=== PATIENT | female | born 1975 | race Caucasian/White ===

== ENCOUNTER 2022-11-08 10:03 | Outpatient (CLI) | payer BC, SELFPAY | END 2022-11-08 10:04 | disposition home or self-care (01) | PROVIDERS: PCP Physician Assistant Medical; Visit Provider Physician Assistant Medical | DX: Z00.00 Encounter for general adult medical examination without abnormal findings (principal); R21 Rash and other nonspecific skin eruption; Z13.6 Encounter for screening for cardiovascular disorders; Z13.1 Encounter for screening for diabetes mellitus | CPT/HCPCS: 80048; 80061; 86039; 86140; 86431; 86812 ==

== ENCOUNTER 2023-09-08 11:52 | Outpatient (CLI) | payer BC, SELFPAY | END 2023-09-08 11:53 | disposition home or self-care (01) | PROVIDERS: PCP Physician Assistant Medical; Visit Provider Physician Assistant Medical | DX: R10.9 Unspecified abdominal pain (principal) | CPT/HCPCS: 80053; 83690 ==

== ENCOUNTER 2023-09-23 07:17 | Outpatient (CLI) | payer BC, SELFPAY ==
--- NOTE | 2023-09-23 07:15 | CRLHL7_ITS ---
For Patients: As a result of the Century Cures Act, medical imaging exams and procedure reports are released immediately into your electronic medical record. You may view this report before your referring provider. If you have questions, please contact your health care provider. INDICATION: Abnormal uterine bleeding TECHNIQUE: Transabdominal and transvaginal scanning was performed. Transvaginal scanning was performed to optimally evaluate the endometrium and adnexa. Ovarian blood flow was evaluated with color-flow and pulsed Doppler. COMPARISON: None. FINDINGS: The uterus is borderline enlarged but normal in shape. The uterus measures 9.8 x 5.2 x 5.4 cm. No myometrial mass is evident. The endometrial stripe is normal in thickness at 3 mm. A 5 x 5 x 3 mm endometrial polyp is noted. The ovaries are normal in appearance. The right ovary measures 2.0 x 1.5 x 0.9 cm and left 2.4 x 2.0 x 2.0 cm. Ovarian blood flow is demonstrated with color-flow and pulsed Doppler. No adnexal mass is evident. No free fluid is demonstrated. IMPRESSION: Borderline enlarged uterus and 5 mm endometrial polyp. Otherwise negative pelvic ultrasound. Dictated by Abelino Jimenez MD @ 09/23/2023 12:10:49 PM (Electronically Signed)
== END 2023-09-23 07:18 | disposition home or self-care (01) ==
LOC: US 07:18
PROVIDERS: PCP Physician Assistant Medical; Visit Provider Physician Assistant Medical
DX: N92.0 Excessive and frequent menstruation with regular cycle (principal); N85.2 Hypertrophy of uterus; N84.0 Polyp of corpus uteri
CPT/HCPCS: 76830; 76856

== ENCOUNTER 2024-04-03 15:04 | Outpatient (CLI) | payer BC, SELFPAY ==
--- NOTE | 2024-04-03 15:20 | CRLHL7_ITS ---
For Patients: As a result of the Century Cures Act, medical imaging exams and procedure reports are released immediately into your electronic medical record. You may view this report before your referring provider. If you have questions, please contact your health care provider. BILATERAL SCREENING MAMMOGRAM WITH COMPUTER-AIDED DETECTION AND TOMOSYNTHESIS TECHNIQUE: CC and MLO views were obtained. These mammographic images have been obtained using full-field digital technique. These mammographic images were interpreted with the benefit of computer-aided detection. Breast Tomosynthesis was used in this interpretation. COMPARISON FILM: 08/17/18, 10/04/14. FINDINGS: The breasts are heterogeneously dense, which may obscure small masses. IMPRESSION: There is no radiographic evidence for malignancy. ASSESSMENT: BI-RADS Category 1: Negative RECOMMENDATION: Routine screening mammogram in 1 year. A lay language report of this examination will be provided to the patient. Elijah Huff M.D. Diagnostic Radiologist [email or web address] SP/Dictated by: Elijah Huff MD @ 04/05/2024 10:20:00 AM (Electronically Signed)
== END 2024-04-03 15:05 | disposition home or self-care (01) ==
LOC: MAMMO 15:05
PROVIDERS: PCP Physician Assistant Medical; Visit Provider Physician Assistant Medical
DX: Z12.31 Encounter for screening mammogram for malignant neoplasm of breast (principal); R92.2 Inconclusive mammogram
CPT/HCPCS: 77063; 77067

== ENCOUNTER 2024-06-29 08:10 | Outpatient (CLI) | payer BC, SELFPAY | END 2024-06-29 08:11 | disposition home or self-care (01) | LOC: NFLDREF 14:48 | PROVIDERS: PCP Physician Assistant Medical; Referring Provider Physician Assistant Medical; Visit Provider Physician Assistant Medical | DX: Z00.00 Encounter for general adult medical examination without abnormal findings (principal); G47.9 Sleep disorder, unspecified; G44.229 Chronic tension-type headache, not intractable; Z13.1 Encounter for screening for diabetes mellitus; Z11.59 Encounter for screening for other viral diseases; Z11.3 Encounter for screening for infections with a predominantly sexual mode of transmission; Z13.29 Encounter for screening for other suspected endocrine disorder; Z13.6 Encounter for screening for cardiovascular disorders | CPT/HCPCS: 80053; 80061; 84443; 86703; 86803 ==

== ENCOUNTER 2024-09-27 10:50 | Emergency (ER) | payer BC, SELFPAY ==
--- OUTSIDE RECORDS SUMMARY | 2024-09-27 10:53 | XMS_ITS | Continuity of Care Document ---
Author Organization [place] - [facility] , [facility] [place] Address [address] [address] Assessment Encounter Date Assessment Date Assessment LastModified by Organization Details LastModified Time 09/18/2024 09/18/2024 Upper Respiratory Infection - based on symptoms of a barking cough with chest burning, low-grade fever, body aches, and nasal congestion. - I prescribed prednisone, one tablet twice a day for five days, advised to take it before 5 PM. - Cough tablet prescribed to be taken three times a day as needed. - Discussed the option to test for COVID-19 with the pharmacist to protect family members. - Recommended getting a humidifier to assist with symptoms. - Advised patient to follow up by Tuesday if symptoms do not improve. [email or web address] Not available 09/18/2024 13:25:13 Plan of Treatment Reminders Order Date Submit Date Provider Last Modified By Organization Details Last Modified Time Details Appointments None recorded. Lab None recorded. Referral None recorded. Procedures None recorded. Surgeries None recorded. Imaging None recorded. Medication Orders prednisone 20 mg tablet 2024 025 [id number] [place], [address], 13:18:08 benzonatate 200 mg capsule 2024 025 [id number], [address] [place], [address], 13:18:08 Patient TargetsNo targets recorded. Patient Instructions Encounter Date Encounter Id Patient Instructions Last Modified By Organization Details Last Modified Time 09/18/2024 [id number] bronchitis: care instructions [email or web address] Not available 09/18/2024 13:18:05 Nasal saline rinses Humidification Rest, hydration Monitor for fever, SOB, wheezing, worsening breathing difficulty counseled on the importance of follow up if symptoms not improving with recommended treatment plan. Patient to be seen for repeat evaluation if symptoms worsen, counseled on red flag symptoms to indicate need for emergent follow up. Patient expressed understanding and agreement with treatment plan as outlined. [email or web address] Not available 09/18/2024 13:24:53 Reason for Referral None Reported. Medical Equipment None Reported. Allergies No known drug allergies Medications Name Sig Start Date Stop Date Status Note LastModified by Organization Details LastModified Time benzonatate 200 mg capsule Take 1 capsule 3 times a day by oral route for 5 days. 2024 active Not Available Not Available Not Avai lable prednisone 20 mg tablet Take 1 tablet twice a day by oral route for 5 days. 2024 active Not Available Not Available Not Avai lable Cony 0.35 mg tablet active ADDED BY CHELO T: Daily Not Available Not Available Not Available Vitals None Recorded Social History None recorded. Functional Status None recorded. Mental Status None recorded. Family History Nothing Reported. Medical History No medical history recorded. Gynecological HistoryNo gynecological history recorded. Obstetrics History GPAL:G 0 P 0 0 0 0 Past Encounters Encounter ID Performer Location Encounter Start Date Encounter Closed Date Diagnosis/Indication Diagnosis SNOMED-CT Code Diagnosis ICD10 Code Diagnosis Note [id number] TODD Rodriguez [facility] [address] [address] 09/18/2024 13:11:03 09/18/2024 19:19:20 Acute bronchitis 50791317 J20.9 Health Concerns Section Related Observation LastModified by Organization Detai ls LastModified Time None Recorded Concern Status LastModified by Organization Details LastModified Time None Recorded Payers Encounter Date Sequence Insurance Name Policy Number Policy Ngo Covered Member ID Ngo Member ID Guarantor Name 09/18/2024 1 [employer] [id number] Anika Gracia [id number] Anika Gracia 09/18/2024 2 *SELF PAY* [id number] Anika Gracia [id number] Anika Gracia Notes Date Note Type Note Provider Name and Address Organization Details Recorded Time 09/18/2024 text/html Patient name , location, and phone number confirmed. Limitations of telemedicine evaluations reviewed, all questions answered, and verbal consent obtained to treat via secure video telemedicine interaction. Clinician attests that the clinician is physically located in the following state at the time of the visit: {{ [place]#}} Patient's current location is: {{home address on file*}} (home/workplace/othe r address) in {{ [place]#}} (state) Patient has been sick for 3 daysHe is complaining of cough, chest congestion, body aches, fever 100, tender with cough, green dark sputum.In addition, no sleeping well due to cough.He used theraflu, tylenol, cough drops, antoinesyKavyae has denies smoking asthma or seasonal allergiesDenies fever, chills, SOB or any other symptoms. TDOD Rodriguez [address] [facility] [address], [address], [facility] 09/18/2024 13:25:28 OBGyn Episode No OBEpisode recorded.
--- OUTSIDE RECORDS SUMMARY | 2024-09-27 10:53 | XMS_ITS | Data Portability ---
Author Organization [place] - [facility] , [facility] Address [address] [place] [address] Assessment Encounter Date Assessment Date Assessment LastModified [...] Orders prednisone 20 mg tablet 2024 025 [id number], [id number] [place], [address], 13:18:08 benzonatate 200 mg capsule 2024 025 [id number], [address] [place], [address], 13:18:08 Patient TargetsNo targets recorded. Patient Instructions Encounter Date Encounter Id Patient Instructions Last Modified By Organization Details Last Modified Time 09/18/2024 [id number] bronchitis: care instructions [email or web address] Not available 09/18/2024 [...] Cony 0.35 mg tablet active ADDED BY PATIEN T: Daily Not Available Not Available Not [...] SNOMED-CT Code Diagnosis ICD10 Code Diagnosis Note [id number] TODD Rodriguez [facility] [address] [address] 09/18/2024 13:11:03 09/18/2024 19:19:20 Acute bronchitis [id number] J20.9 Health Concerns Section Related Observation LastModified by Organization Detai ls LastModified Time None Recorded Concern Status LastModified by Organization Details LastModified Time None Recorded Advance Directives Directive None Recorded Payers Encounter Date Sequence Insurance Name Policy Number Policy Ngo Covered Member ID Ngo Member ID Guarantor Name 09/18/2024 1 [facility] [id number] Anika Gracia [id number] Anika Gracia 09/18/2024 2 *SELF PAY* [id number] Anika Gracia [id number] Anika Gracia Notes Date Note Type [...] to cough.He used theraflu, tylenol, cough drops, delsymHe has denies smoking asthma or seasonal allergiesDenies fever, chills, SOB or any other symptoms. TODD Rodriguez [address] [place] [address] [address], [address], [facility] 09/18/2024 13:25:28 OBGyn Episode No OBEpisode recorded.
[2024-09-27 10:54] VITALS: BP 130/79; PULSE 69; RESP 18; TEMP 36.6; O2SAT 99; BMI 21.6
--- NOTE | 2024-09-27 12:01 | ED_ITS ---
HPI - General Adult General Time Seen by Provider: 12:01 Date Seen: 09/27/24 Chief complaint: Headache/Migraine Stated complaint: Fell down stairs Tuesday, L arm/head pain Time Seen by Provider: 09/27/24 11:38 Source: patient, RN notes reviewed and old records reviewed (Clinic notes reviewed from the and of this month.) Mode of arrival: ambulatory Limitations: no limitations History of Present Illness HPI narrative: This 49yo female is coming in to the ED with ongoing worsening headache. She tells me that her headache may be developed on Tuesday, does not feel she had this headache at the time of an injury. She had a fall on September 22 which was Tuesday, she did fall on her left arm and chest wall. This was the night of her son's wedding, she slid down stairs. Her was called for by patient, she was alert at that time. He states after the fall, she went limp in his arms like she loss consciousness. She never had any external head pain like she hit her head anywhere, does not remember hitting her head. She went to clinic on September 24, saw Dr. Hughes. They did x-rays of her left forearm and chest x-ray with left rib views. Her left rib views were negative for fracture. Her forearm showed an acute mildly displaced fracture of the distal ulna metadiaphysis. She followed up with Orthopedics on the , they put a s plint on, this is to be non operative management and she will be following up with them. She notes that she was sick with an influenza like illness a week before the wedding, had some fevers and upper respiratory symptoms. Those have resolved. She is not left with any facial pain, no nasal drainage, no dental pain. She notes no visual changes other than lytes intensify her headache. Movement intensifies her headache. No current fevers. She does not have a history of chronic headache issues. She describes her whole head is hurting, feels best if she lies still, is starting to radiate into her neck. No neurologic changes. Related Data Previous Rx's ?Medication ?Instructions ?Recorded norethindrone (contraceptive) 0.35 0.35 mg PO QDAY #84 tabs 03/26/ mg tablet (Cony) alprazolam 0.5 mg tablet 0.5 - 1 mg (1 - 2 x 0.5 mg) PO .HS 05/17/24 #30 tabs tramadol 50 mg tablet 50 mg PO BID PRN pain #20 tabs 09/24/24 hydrocodone 5 mg-acetaminophen 325 1 tab PO Q4-6H PRN pain #20 tabs 09/25/24 mg tablet Allergies Allergy/AdvReac Type Severity Reaction Status Date / Time minocycline AdvReac Severe Dizziness Verified 09/27/24 11:06 Review of Systems Status of ROS: Reports: 6 or more systems reviewed and unremarkable except as noted in History and below PFSH PFS Surgical History History of dilation and curettage ?Z98.890 - Other specified postprocedural states (ICD-10) Family History Daughter Suicide attempt Maternal Grandmother Lymphoma Maternal Grandfather Prostate cancer Stroke Mother Depression Other Arthritis Skin cancer Social History Narrative: hx of working for [employer]. She does not smoke. Occasional alcohol use with no concerns for overuse. Reports about 4 alcoholic beverages per week. She denies any recreational drug use. Her previous fianc?e committed suicide a few years ago. She is currently dating x 5+ years, and remains in a stable committed relationship, recently engaged- Franky. She has a total of 4 children. Her oldest daughter suffered anoxic brain injury secondary to suicide attempt, however she had a baby in the summer of . Her 2 other daughters reside with their biological father. Her son (EDMOND)- senior in high school; has previously reside with her, but has been staying with the father. Smoking Status: Never smoker Second hand tobacco smoke exposure: No How often do you have a drink containing alcohol: never How often do you have six or more drinks on one occasion: Never AUDIT-C Alcohol total score: 0 Non-prescribed substance use: denies use service: No Exam Const: Vital Signs, click to edit/add: Vital Signs - 24 hr 09/27/24 10:54 09/27/24 12:19 Temperature 97.9 F Pulse Rate [Right Pulse Oximeter] 69 Respiratory Rate 18 Blood Pressure [Ri ght Upper Arm] 130/79 Pulse Oximetry 99 100 Oxygen Delivery Me thod Room Air This 49-year-old female is alert, interactive, no apparent distress. Ambulatory into the ED of her own accord. Pupils equal round reactive, sclera clear, extraocular muscles intact. Face head atraumatic. No midline tenderness of her neck, no significant paraspinous tenderness, no cervical adenopathy or neck masses noted. TMs canals normal no traumatic changes. Anterior nares without any drainage. Oropharynx is normal. Lungs are clear, good air entry, wheeze or crackles. CV regular rate and rhythm, no murmur. She is still mildly tender along her left anterolateral chest wall but no crepitus, no step-off, note no ecchymosis. Abdomen is soft, nontender, nondistended. Patient was ambulatory into the ED. Has a short-arm splint on. Documenting provider has reviewed patient's vital signs: yes Course Course ED Course: Will do imaging with head CT, place an IV, do Reglan and Benadryl to see if this benefits her. Will do baseline labs as well. She does not recollect hitting her head. She seemingly passed out after the fall, possibly due to pain. Reevaluation(s) Time of Reevaluation #1: 13:53 Reevaluation #1: Have provided patient copies of her cervical spine CTs and her head CT. We did review the incidental finding of the thyroid nodules, will recommend outpatient follow-up thyroid ultrasound and thyroid function studies with her primary provider. There is no evidence of intracranial trauma or bleeding. Did discuss the remote possibility that a head CT might not show minor bleeding. Lumbar puncture would be the next step to evaluate with that. She really has no clinical indication that she hit her head during the fall. Upon further discussion, she did bring up pain in her arm, did get [place] as Toradol was not helping. Her headache did start intensify after taking the [place]. She typically does not take pain medicines. She actually on did the Davis wraps of her splint last night as her thumb was starting to go numb, felt the splint was so tight. Arm is feeling better now. She will get some sharp shooting pain at times up into the forearm. The thumb is no longer numb. Did evaluate her cast, she has plenty of room that I can get into under the stocking at, this does not seem to be causing any neurovascular constriction. Fingers are warm, good cap refill, good sensation. The Davis wrap is not too tight, she states she did remove a couple of them. I would recommend stopping the [place], will send prescription for tramadol to have on hand if she cannot tolerate the pain with Tylenol, ibuprofen and conservative management with ice and elevation. We discussed the risks and benefits of doing a lumbar puncture, at this point I really do not believe a lumbar puncture is indicated and believe the risk of even post spinal headache outweighs potential benefit of this. We discussed signs and symptoms for return. At this time, she is in agreement as is her to not proceed with lumbar puncture. I think we have other reasonable explanation to explain her headache. The hydrocodone is very likely responsible and contributing. There could be a remote possibility of concussion without actually hitting her head, contra croup type injury. Vital Signs Vital signs: Initial Vital Signs Temperature 97.9 F 09/27/24 10:54 Temperature Source Temporal Artery Scan 09/27/24 10:54 Pulse Rate 69 09/27/24 10:54 Pulse Rhythm Regular 09/27/24 10:54 Pulse Strength 3+ Normal 09/27/24 10:54 Respiratory Rate 18 09/27/24 10:54 Blood Pressure 130/79 09/27/24 10:54 Blood Pressure Mean 96 09/27/24 10:54 Blood Pressure Position Sitting 09/27/24 10:54 Pulse Oximetry 99 09/27/24 10:54 Oxygen Delivery Method Room Air 09/27/24 10:54 Vital Signs Temperature 97.9 F 09/27/24 10:54 Pulse Rate 69 09/27/24 10:54 Respiratory Rate 18 09/27/24 10:54 Blood Pressure 130/79 09/27/24 10:54 Pulse Oximetry 99 09/27/24 10:54 Oxygen Delivery Method Room Air 09/27/24 10:54 Temperature 97.9 F 09/27/24 10:54 Pulse Rate 69 09/27/24 10:54 Respiratory Rate 18 09/27/24 10:54 Blood Pressure 130/79 09/27/24 10:54 Pulse Oximetry 100 09/27/24 12:19 Oxygen Delivery Method Room Air 09/27/24 10:54 Medications Administered Medications: Discontinued Medications Generic Name Dose Route Start Last Admin Trade Name Maribel PRN Reason Stop Dose Admin Diphenhydramine HCl 25 mg 09/27/24 12:19 09/27/24 12:37 Diphenhydramine 50 Mg/Ml Inj IVP 09/27/24 12:20 25 mg ONCE ONE Administration Sodium Chloride 500 mls @ 500 mls/hr 09/27/24 12:19 09/27/24 13:29 0.9 % Sodium Chloride 500 Ml IV 09/27/24 13:18 Infused .Q1H ONE Infusion Metoclopramide HCl 10 mg/ 102 mls @ 306 mls/hr 09/27/24 12:19 09/27/24 13:29 Sodium Chloride IVPB 09/27/24 12:20 Infused ONCE ONE Infusion Ketorolac Tromethamine 15 mg 09/27/24 14:15 09/27/24 14:20 Ketorolac 15 Mg/Ml Inj IVP 09/27/24 14:16 15 mg ONCE ONE Administration Medical Decision Making Lab Data Labs: Lab Results 09/27/24 Range/Units 12:30 WBC 6.04 (4.50-11.00) K/uL RBC 4.00 (4.00-5.20) m/uL Hgb 12.5 (12.0-16.0) gm/dL Hct 37.4 (33.0-51.0) % MCV 94 (80-100) fL MCH 31 (26-34) pg MCHC 33 (32-36) gm/dL RDW Coeff of Priscila 11.8 (11.5-15.5) % Plt Count 205 (140-440) K/uL Neut % (Auto) 63.8 (42.0-72.0) % Lymph % (Auto) 26.5 (20-44) % [place] % (Auto) 7.5 (0.0-11.0) % Eos % (Auto) 1.0 (0.0-7.0) % Baso % (Auto) 0.5 (0.0-3.0) % Neut # (Auto) 3.86 (1.7-7.0) K/uL Lymph # (Auto) 1.60 (0.90-2.90) K/uL [place] # (Auto) 0.50 (0.00-0.90) K/UL Eos # (Auto) 0.06 (0.00-0.50) K/uL Baso # (Auto) 0.03 (0.00-0.30) K/uL Abs Immat Gran (auto) 0.04 (0.00-0.30) K/uL Imm/Tot Granulo (auto) 0.7 % ESR 10 (2-20) mm/hr Sodium 140 (135-149) mmol/L Potassium 3.8 (3.6-5.1) mmol/L Chloride 107 (96-114) mmol/L Carbon Dioxide 26 (20-32) mmol/L Anion Gap 7 (7-15) mEq/L BUN 14 (5-24) mg/dL Creatinine 0.7 (0.5-1.5) mg/dL Estimated Creat Clear 88.44 Estimated GFR 107 ml/min Glucose 101 (60-115) mg/dL Lactate 0.8 (0.5-1.9) mmol/L Calcium 9.1 (8.4-10.6) mg/dL Magnesium 2.3 (1.5-2.6) mg/dL Total Bilirubin 0.6 (0.1-1.5) mg/dL AST 21 (12-35) U/L ALT 16 (4-35) U/L Alkaline Phosphatase 27 L (40-150) U/L C-Reactive Protein < 0.5 L (0.5-1.0) mg/dL Total Protein 7.1 (6.0-8.3) g/dL Albumin 4.5 (3.3-5.0) g/dL Procalcitonin < 0.03 L (<0.50) ng/mL Discharge Plan Discharge Clinical Impression: Generalized headache Patient Disposition: Home, Self-Care Condition: Stable Instructions: General Headache (ED) Additional Instructions: Please follow up with your primary provider, need to review the thyroid abnormalities on the CT of the neck. Try to stop using the hydrocodone as this may certainly be contributing to your headache. Would anticipate that the headache should start improving over the next 1-2 days if hydrocodone is contributing. Stick with Tylenol and ibuprofen per bottle directions for pain management. It is important to stay hydrated. Stay hydrated as dehydration can make headaches worse. If you feel you are worsening, have further concerns, do recommend re-evaluation. Prescriptions: No Action tramadol 50 mg tablet 50 mg PO BID PRN (Reason: pain) Qty: 20 0RF norethindrone (contraceptive) [Cony] 0.35 mg tablet 0.35 mg PO QDAY Qty: 84 3RF Patient Comments: 1 TAB by mouth DAILY hydrocodone-acetaminophen 5-325 mg tablet 1 tab PO Q4-6H PRN (Reason: pain) Qty: 20 0RF alprazolam 0.5 mg tablet 0.5 - 1 mg PO .HS Qty: 30 0RF Follow Up/Referrals: Sarah Mosquera PA-C [Primary Care Provider] - Stand Alone Forms: [employer] Info Instructions
[2024-09-27 12:19] VITALS: O2SAT 100
--- NOTE | 2024-09-27 12:19 | CRLHL7_ITS ---
For Patients: As a result of the Century Cures Act, medical imaging exams and procedure reports are released immediately into your electronic medical record. You may view this report before your referring provider. If you have questions, please contact your health care provider. INDICATION: Neck pain severe generalized headache. TECHNIQUE: CT head without contrast. COMPARISON: None. FINDINGS: Brain parenchyma and extra-axial spaces: The serra-white differentiation is normal. No sign of mass, hemorrhage, or midline shift. No extra-axial fluid collection. The ventricles are of normal caliber. Skull base and calvarium: The visualized paranasal sinuses and mastoid air cells demonstrate no acute or significant findings. The visualized orbits are grossly unremarkable. No skull fractures. IMPRESSION: No acute intracranial abnormality. Please note that all CT scans at this facility use dose modulation, iterative reconstruction, and/or weight-based dosing when appropriate to reduce radiation dose to as low as reasonably achievable. Dictated by Michael Buchanan MD @ 09/27/2024 1:10:26 PM (Electronically Signed)
--- NOTE | 2024-09-27 12:19 | CRLHL7_ITS ---
For Patients: As a result of the Century Cures Act, medical imaging exams and procedure reports are released immediately into your electronic medical record. You may view this report before your referring provider. If you have questions, please contact your health care provider. INDICATION: Neck pain, severe generalized headache. TECHNIQUE: CT cervical spine without contrast. COMPARISON: None. FINDINGS: No acute vertebral compression fracture or malalignment. Slight reversal of normal cervical lordosis. Atlantooccipital and atlanto odontoid interval is maintained. Bilateral occipital condyles are intact. Multilevel mild degenerative changes of the spine with reduction of intervertebral disc height at C4-5 and C5-6 with scattered uncovertebral and facet arthropathy. 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 No suspicious findings the included lung apices. Paravertebral soft tissues demonstrates no acute findings. IMPRESSION: Multilevel mild degenerative changes without acute osseous abnormality of the cervical spine. Please note that all CT scans at this facility use dose modulation, iterative reconstruction, and/or weight-based dosing when appropriate to reduce radiation dose to as low as reasonably achievable. Dictated by Michael Buchanan MD @ 09/27/2024 1:13:32 PM (Electronically Signed)
[2024-09-27 12:36] LABS: Lactate* 0.8 mmol/L (0.5-1.9)
[2024-09-27] MEDS: 0.9 % SODIUM CHLORIDE 500 ML 500 ML IV (12:36)
[2024-09-27] MEDS: METOCLOPRAMIDE HCL 10 MG in 0.9 % SODIUM CHLORIDE 100 ml 100 ML 306 MG IVPB (12:37)
[2024-09-27] MEDS: diphenhydrAMINE 50 MG/ML inj 25 MG IVP (12:37)
[2024-09-27 12:47] LABS: Basophils Absolute Auto 0.03 K/uL (0.00-0.30); Basophils Percent Auto 0.5 % (0.0-3.0); Eosinophils Absolute Auto 0.06 K/uL (0.00-0.50); Hematocrit 37.4 % (33.0-51.0); Hemoglobin* 12.5 gm/dL (12.0-16.0); Immature Granulocytes Abs Auto 0.04 K/uL (0.00-0.30); Immature Granulocytes Pct Auto 0.7 %; Lymphocytes Percent Auto 26.5 % (20-44); Mean Corpuscular HGB Conc 33 gm/dL (32-36); Mean Corpuscular Hemoglobin 31 pg (26-34); Mean Corpuscular Volume 94 fL (80-100); Monocytes Percent Auto 7.5 % (0.0-11.0); Neutrophils Absolute Auto 3.86 K/uL (1.7-7.0); Neutrophils Percent Auto 63.8 % (42.0-72.0); Platelet Count* 205 K/uL (140-440); RDW Coefficient of Variation % 11.8 % (11.5-15.5); White Blood Count* 6.04 K/uL (4.50-11.00)
[2024-09-27 12:50] LABS: Slide Review Reflex No
[2024-09-27 12:56] LABS: Albumin* 4.5 g/dL (3.3-5.0); Chloride* 107 mmol/L (96-114)
[2024-09-27 12:57] LABS: Potassium* 3.8 mmol/L (3.6-5.1); Sodium* 140 mmol/L (135-149)
[2024-09-27 12:59] LABS: Creatinine* 0.7 mg/dL (0.5-1.5); Est. Creatinine Clearance* 88.44; Estimated Glomerular Filt Rate 107 ml/min
[2024-09-27 13:00] LABS: Alanine Aminotransferase* 16 U/L (4-35); Alkaline Phosphatase* 27 U/L (40-150); Anion Gap 7 mEq/L (7-15); Aspartate Amino Transferase* 21 U/L (12-35); Bilirubin Total* 0.6 mg/dL (0.1-1.5); Blood Urea Nitrogen* 14 mg/dL (5-24); Calcium* 9.1 mg/dL (8.4-10.6); Carbon Dioxide* 26 mmol/L (20-32); Glucose* 101 mg/dL (60-115); Total Protein* 7.1 g/dL (6.0-8.3)
[2024-09-27 13:01] LABS: Magnesium* 2.3 mg/dL (1.5-2.6)
[2024-09-27 13:03] LABS: C Reactive Protein* < 0.5 mg/dL (0.5-1.0)
[2024-09-27 13:26] LABS: Procalcitonin* < 0.03 ng/mL (<0.50)
[2024-09-27 13:52] LABS: Erythrocyte SedimentationRate* 10 mm/hr (2-20)
[2024-09-27] MEDS: KETOROLAC 15 MG/ML inj IVP (14:20)
== END 2024-09-27 14:40 | disposition home or self-care (01) ==
PROVIDERS: Emergency Provider Family Medicine; PCP Physician Assistant Medical
DX: R51.9 Headache, unspecified (principal)
CPT/HCPCS: 36415; 70450; 72125; 80053; 83605; 83735; 84145; 85025; 85651; 86140; 94761; 96365; 96375; 99284; J1200; J1885; J2765; J7030

== ENCOUNTER 2024-10-05 07:17 | Day surgery (SDC) | payer BC, SELFPAY ==
[2024-10-05] VITALS (7 sets, daily range): BP systolic 96–112; BP diastolic 48–71; PULSE 64–82; RESP 16; TEMP 37.2–37.3; O2SAT 95–99; BMI 20.9
--- OUTSIDE RECORDS SUMMARY | 2024-10-05 07:19 | XMS_ITS | Clinical Summary ---
Author Organization [employer] [facility] Address [place], [place] [address] Care Team Providers Care Salesforce Business Analyst Name Role Phone Pcp, No Primary Care Provider Unavailabl e Allergies No known active allergies Medications No known medications Social History Tobacco Use Types Packs/Day Years Used Date Smoking Tobacco: Never Alcohol Use Standard Drinks/Week Comments Not Asked 0 (1 standard drink = 0.6 oz pur e alcohol) Social Connections Answer Date Recorded Frequency of Communication with Friends and Fami ly Not on file 10/20/2022 Comments No Sex and Gender Information Value Date Recorded Sex Assigned at Not on file Legal Sex Female 4:03 PM INTERNATIONAL FREIGHT FORWARDER Gender Identity Not on file Sexual Orientation Not on file Obstetrics History Last Filed Vital Signs Vital Sign Reading Time Taken Comments Blood Pressure 120/80 06/02/2010 6:10 PM CDT Pulse - - Temperature 36.7 C (98.1 F) 06/02/2010 6:10 PM CDT Respiratory Rate - - Oxygen Saturation - - Inhaled Oxygen Concentration - - Weight 56.3 kg (124 lb 3.2 oz) 06/02/2010 6:10 P M CDT Height - - Body Mass Index - - Plan of Treatment Health Maintenance Due Date Last Done Comments Tdap 1987 Depression screening for age 12+ 1988 HIV for age 15-65 1991 BMI (ht and wt on same day) for age 18+ 1994 Hepatitis C screening for age 18-79 1994 Tetanus booster 1996 Colonoscopy through age 75 2021 Lipids for age 45-75 2021 Mammogram for age 45-75 2021 COVID-19 vaccine series (2023- season) 2024 Influenza for age 9-49 05/06/2024 Pap test for age 21-65 08/31/2024 , 08/31/2021, 09/07/2019, Additional history exists Pneumococcal series for age 6-49 Aged Out No longer eligible based on patient's age to complete this topic Procedures Procedure Name Priority Date/Time Associated Diagnosis Comments HPV HIGH RISK Routine 08/31/2021 10:29 AM INTERNATIONAL FREIGHT FORWARDER from Last 3 Months or Most Recently Relevant to Health Maintenance Results * HPV HIGH RISK (08/31/2021 10:29 AM INTERNATIONAL FREIGHT FORWARDER) TYPE 16 Negative Negative 09/02/2021 2:05 PM INTERNATIONAL FREIGHT FORWARDER [facility] TYPE 18 Negative Negative 09/02/2021 2:05 PM INTERNATIONAL FREIGHT FORWARDER [facility] OTHER HIGH RISK TYPES Negative Negative 09/02/2021 2:05 PM INTERNATIONAL FREIGHT FORWARDER [facility] Other (Cervical/Vagina l) 08/31/2021 10:29 AM INTERNATIONAL FREIGHT FORWARDER 09/01/2021 7:27 AM INTERNATIONAL FREIGHT FORWARDER Narrative [facility] - 09/02/2021 2:05 PM INTERNATIONAL FREIGHT FORWARDER HPV types 16, 18, 31, 33, 35, 39, 45, 51, 52, 56, 58, 59, 66 and 68 DNA were undetectable or below the pre-set threshold. Methodology: Nadiya Kathrin 4800 HPV Test us Sarah Mosquera PA-C MICROBIOLOGY Final Result [facility] [address] [place] [address], [place] from Last 3 Months or Most Recently Relevant to Health Maintenance Care Teams Salesforce Business Analyst Relationship Specialty Start Date End Date Pcp, No . PCP - General 06/02/10
--- OUTSIDE RECORDS SUMMARY | 2024-10-05 07:19 | XMS_ITS | Continuity of Care Document ---
Author Organization [place] - [facility] , [facility] [place] Address [address] [address] Assessment Encounter Date Assessment Date Assessment LastModified [...] Orders prednisone 20 mg tablet 2024 025 [id number] [address] [place], [address], 13:18:08 benzonatate 200 mg capsule 2024 025 [id number], [address] [place], [address], 13:18:08 Patient TargetsNo targets recorded. Patient Instructions Encounter Date Encounter Id Patient Instructions Last Modified By Organization Details Last Modified Time 09/18/2024 [id number] bronchitis: care instructions emaiyo Not available 09/18/2024 [...] SNOMED-CT Code Diagnosis ICD10 Code Diagnosis Note [id number] TODD Rodriguez [facility] [address] [address] 09/18/2024 13:11:03 09/18/2024 19:19:20 Acute bronchitis 88537620 J20.9 Health Concerns Section Related Observation LastModified by Organization Detai ls LastModified Time None Recorded Concern Status LastModified by Organization Details LastModified Time None Recorded Payers Encounter Date Sequence Insurance Name Policy Number Policy Ngo Covered Member ID Ngo Member ID Guarantor Name 09/18/2024 1 [employer] [id number] Anika Gracia [id number] Anika Gracia 09/18/2024 2 *SELF PAY* [id number] Anika Gracia [id number] Anika Gracia Notes Date Note Type [...] SOB or any other symptoms. TODD Rodriguez 1 [facility] [address], [address], [facility] 09/18/2024 13:25:28 OBGyn Episode No OBEpisode recorded.
--- OUTSIDE RECORDS SUMMARY | 2024-10-05 07:20 | XMS_ITS | Data Portability ---
Author Organization [place] - [facility] iogyn , [facility] Address [address] [place] [address] Assessment Encounter Date Assessment Date Assessment LastModified [...] Orders prednisone 20 mg tablet 2024 025 [id number], [address] [place], [address], 13:18:08 benzonatate 200 mg capsule 2024 025 [id number], [address] [place], [address], 13:18:08 Patient TargetsNo targets recorded. Patient Instructions Encounter Date Encounter Id Patient Instructions Last Modified By Organization Details Last Modified Time 09/18/2024 [id number] bronchitis: care instructions [email or web address] Not available 09/18/2024 [...] SNOMED-CT Code Diagnosis ICD10 Code Diagnosis Note [id number] TODD Rodriguez [facility] [address] [address] 09/18/2024 13:11:03 09/18/2024 19:19:20 Acute bronchitis [id number] J20.9 Health Concerns Section Related Observation LastModified by Organization Detai ls LastModified Time None Recorded Concern Status LastModified by Organization Details LastModified Time None Recorded Advance Directives Directive None Recorded Payers Encounter Date Sequence Insurance Name Policy Number Policy Ngo Covered Member ID Ngo Member ID Guarantor Name 09/18/2024 1 [facility] [id number] Anika Gracia [id number] Anika Gracia 09/18/2024 2 *SELF PAY* [id number] Anika Gracia [id number] Anika Gracia Notes Date Note Type [...] SOB or any other symptoms. TODD Rodriguez [address] [place] [address], [place], [address], [facility] 09/18/2024 13:25:28 OBGyn Episode No OBEpisode recorded.
[2024-10-05 08:09] LABS: Ur HCG Qualitative* Negative (Negative)
[2024-10-05] MEDS: 0.9 % SODIUM CHLORIDE 500 ML 500 ML 100 ML IV ×2 (08:28→11:59)
[2024-10-05] MEDS: SODIUM CHLORIDE 0.9 % (FLUSH) 10 ML SYRINGE IVF (08:29)
--- NOTE | 2024-10-05 09:34 | SUR.PREOP ---
TIME?OUT:?0927 PT/RN/MDA?VERIFICATION?OF?SURGICAL?SITE,?PROCEDURE,?AND?CONSENT OBTAINED?PRIOR?TO?INVASIVE?PROCEDURE. all in agreement
[2024-10-05] MEDS: fentaNYL 100 MCG/2 ML inj IVP (09:38)
[2024-10-05] MEDS: MIDAZOLAM HCL 1 MG/ML inj IVP (09:38)
--- NOTE | 2024-10-05 09:39 | W.PM.NB ---
Nerve Block Nerve Block Time Seen by Provider: 09:33 Date Seen: 10/05/24 Type of block requested by surgeon for post-operative analgesia: axillary Side: left Time out performed: Yes Verification of patient name: Yes Verification of date of : Yes Site marking: site marked Name of person performing procedure: Ck Continuous monitoring Was continuous monitoring of O2 sat, B/P, mathematics faculty member, recorded every 15 minutes?: Yes Procedure Checklist: sterile prep, needles and gloves Ultrasound guided. Images saved: Yes Medications given in 5ml increments after negative aspiration: Ropivicaine %: 0.5 mL: 30 Needle gauge: 22 Patient tolerated procedure well: Yes Additional comments: Needle noted adjacent to nerve Block Charges Block Charge (with Pro Fee): Brachial Plexus Use of Ultrasound Machine for Block: Yes- US Guidance/pain block
--- NOTE | 2024-10-05 09:47 | W.PM.H&PU ---
History & Physical Update History & Physical Update H&P Reviewed and patient assessed: No changes noted
--- NOTE | 2024-10-05 09:47 | PM.ORPRC ---
Procedure Note Date of procedure: 10/05/24 Procedure: PREOPERATIVE DIAGNOSES: 1. Left distal ulna shaft fracture, closed, displaced POSTOPERATIVE DIAGNOSES: 1. Left distal ulna shaft fracture, closed, displaced NAME OF OPERATION: 1. Left distal ulna open reduction with internal fixation SURGEON: Wilner Dangelo MD ELECTRICAL MANUFACTURING TECHNICIAN: Jose Ledbetter - An fitter's assistant was critical for this case to aide in patient positioning, limb manipulation, tissue retraction, closure, and splinting. ANESTHESIA: Monitored anesthesia care with axillary nerve block IMPLANTS: Synthes 7 hole 2.7 mm LCP plate with 2.7 mm locking and nonlocking screws and a single 2.0 mm nonlocking screw. TOURNIQUET: 87 minutes at 250 mmHg. INDICATIONS: The patient is a pleasant, 49-year-old female who sustained a left wrist injury after a fall. They had difficulty with use of the extremity and deformity. Workup included xrays which revealed an unstable, displaced distal ulna shaft fracture. Given these findings, surgery was recommended to stabilize the fracture. Prior to surgery the risks and benefits of the procedure were discussed with patient all questions were answered and informed consent was obtained. FINDINGS: Closed, displaced, oblique fracture of the distal ulna shaft near the metaphyseal diaphyseal junction with longitudinal fracture line extending into the distal fragment. Stable distal radial ulnar joint. PROCEDURE: Following a thorough discussion of risks, benefits, and alternatives, consent was obtained and the operative extremity was marked. An axillary nerve block was performed by anesthesia staff. The patient was then brought to the operating room and placed supine on the operating table. Induction of anesthesia was achieved and patient was provided with 1 g IV Ancef preoperatively for prophylaxis. The operative extremity was prepped and draped in usual sterile fashion . A surgical time-out was performed confirming patient identity surgical site and surgical procedure. The operative extremity was exsanguinated and the tourniquet inflated to 250 mmHg. A longitudinal incision was made along the lateral border of the distal ulna centered over the fracture site. Blunt dissection was used to dissect through subcutaneous tissues with care taken to avoid the dorsal sensory branch of the ulnar nerve. The fracture was encountered and cleared of interposed periosteum and fracture hematoma. Wound fracture irrigated normal saline. Reduction was attempted but anatomic reduction was difficult secondary to the longitudinal extension which extended into the distal fragment. For decision was made to fix this with a single lag screw. A clamp was placed across the distal fragment reducing the longitudinal fracture. This was then fixed with a 2.0 mm lag screw. The primary oblique fracture line was then reduced anatomically. A Synthes 7 hole 2 point mm LCP plate was selected and contoured to fit on the ulnar border of the distal ulna. Plate was then provisionally held in place with a lobster clamp with care taken to maintain anatomic reduction of the fracture. Fluoroscopic images confirmed reduction of the fracture and appropriate placement of the plate. The plate was then fixed proximally with 2.7 mm long locking screw and distally with a 2.7 mm nonlocking screw. Two additional 2.7 mm locking screws were placed distal and proximal to the fracture site. The two most distal locking screws were placed unicortically to avoid penetrating the distal radioulnar joint and to avoid the previously placed lag screw. Fluoroscopic images in AP and lateral planes confirmed anatomic reduction of the fracture with good placement of the plate and screws. After fixation, the DRUJ was confirmed to be stable. Fracture remained anatomically reduced with wrist flexion/extension and forearm pronation/supination. Wounds were irrigated with normal saline. The deep fascia was repaired over the plate with 3-0 Vicryl [id number] interrupted sutures. The extensor retinaculum was repaired with 3-0 Vicryl [id number] interrupted sutures. Tourniquet was released and hemostasis was achieved electrocautery. Wound was again irrigated normal saline. Skin was closed with 3-0 Vicryl inverted interrupted subcutaneous stitches followed by running 2-0 Stratafix stitch and Dermabond. No dressing was applied followed by application of a short-arm volar splint. The patient was awoken from anesthesia and transferred to PACU in stable condition. PLAN: 1. Elevate operative extremity. 2. Ice, acetaminophen or ibuprofen PRN. 3. Oxycodone or tramadol as needed for more severe pain 4. Follow up in Orthopedic Clinic in 10-14 days for wound check and conversion to removable short-arm brace. 5. We will initiate occupational therapy after 1st postoperative visit.
[2024-10-05] MEDS: CEFAZOLIN 2 GM INJ IVP (10:06)
--- NOTE | 2024-10-05 10:54 | SUR.OPER ---
PATIENT QUESTIONS ANSWERED SATISFACTORILY PREOPERATIVELY.? PATIENT BROUGHT TO OR #3 PER CART AFTER ADMINISTRATION OF A BLOCK.? Patient positioned supine on OR #3 bed.? The perioperative?team supported arms bilaterally on arm boards.? Final approval of positioning by surgeon.?
--- NOTE | 2024-10-05 12:46 | W.ANESCHARGE ---
Anesthesia Charges Start Date/Time Anesthesia Start Date: 10/05/24 Anesthesia Start Time: 10:01 Stop Date/Time Anesthesia Stop Date: 10/05/24 Anesthesia Stop Time: 12:29 Coding CPT Codes CPT Codes: ANESTH LOWER ARM SURGERY - 95790 ([id number]) P1 - NORMAL HEALTHY PATIENT, QK - TRANSITION MGR RN 2-4 CNCRNT ANES PROC, QX - HOME CARE MANAGER RN SVKarlie W/ MED DIRECTION
--- NOTE | 2024-10-05 12:56 | W.ANESCHARGE ---
Anesthesia Charges Start Date/Time Anesthesia Start Date: 10/05/24 Anesthesia Start Time: 10:01 Stop Date/Time Anesthesia Stop Date: 10/05/24 Anesthesia Stop Time: 12:29 Coding CPT Codes CPT Codes: ANESTH LOWER ARM SURGERY - 82837 ([id number]) P1 - NORMAL HEALTHY PATIENT, QX - SPRAY MIXER BAL W/ MED DIRECTION, QK - TRANSPORTATION PROJECT MANAGER 2-4 CNCRNT ANES PROC
--- NOTE | 2024-10-05 12:57 | SUR.PHASEII ---
pt tolerated food brought in from . tolerated water. Up to bathroom with SBA. denies pain. Left arm in sling, dressing c/d/i
== END 2024-10-05 13:20 | disposition home or self-care (01) ==
PROVIDERS: PCP Physician Assistant Medical; Visit Provider Orthopaedic Surgery
PROC: (CPT 25575; principal; 2024-10-05 09:30)
DX: S52.692A Other fracture of lower end of left ulna, initial encounter for closed fracture (principal); G89.18 Other acute postprocedural pain
CPT/HCPCS: 25545; 01830; 64415; 73100; 73110; 76000; 76942; 81025; C1713; J0690; J1100; J2250; J2371; J2405; J2704; J2795; J3010; J7030

== ENCOUNTER 2024-12-25 08:30 | Outpatient (RCR) | payer BC, SELFPAY ==
--- NOTE | 2024-10-17 13:13 | OT.OPOE ---
OT Outpatient Ortho Eval OT Outpatient Ortho Eval* Start: 10/17/24 08:07 Freq: Status: Active Protocol: Document 10/17/24 08:07 LILA (Rec: 10/17/24 13:10 ARNOLDOHawk [id number]) E-signed By Julia Pope, OTR/L, CLT OT OP Ortho Eval Details Complexity Complexity Medium Insurance Information Insurance Information Blue [employer] Outpatient History/Precautions Current Condition/Medical Diagnosis Referring Provider Dr Rosalio Dangelo Medical Diagnoses Z98.890 Other specified postprocedural states s/p Left Distal Ulna ORIF S52.602A - Unspecified fracture of lower end of left ulna, initial encounter for closed fracture, S52.609A - Unspecified fracture of lower end of unspecified ulna, initial encounter for closed fracture Treatment Diagnosis L wrist pain, M25.532 L wrist stiffness, M25.632 Localized edema, R60.0 Date of Onset DOI: 09/22/24 (fell down the stairs) & DOS: 10/05/24 Other Precautions Sleep in splint with arm straight on pillows with arm elevated for edema reduction. No aggressive or forced passive range of motion until x-rays show full union of fracture. No pushing or pulling with affected wrist. Other Conditions Closed fracture of distal end of left ulna (Acute) S52.602A - Unspecified fracture of lower end of left ulna, initial encounter for closed fracture (ICD-10) Fracture, ulna, distal (Acute) S52.609A - Unspecified fracture of lower end of unspecified ulna, initial encounter for closed fracture (ICD-10) Rib pain on left side R07.81 - Pleurodynia (ICD-10) M79.602 - Pain in left arm ( ICD-10) Perioral dermatitis (Acute) on Minocycline Panic attack (Acute) Alprazolam F41.0 - Panic disorder [episodic paroxysmal anxiety] Mixed anxiety depressive disorder (Acute) F41.8 - Other specified anxiety disorders Difficulty sleeping (Acute) Alprazolam nightly. 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 Dangelo. Was seen by PA for f /u Ortho apt on 10/15/24. Reports doing well. C/o left wrist stiffness and minimal left wrist pain that is well managed with ice and elevation . Not taking oral pain medications but will probably do some ibuprofen now that we are starting therapy and working on some exercise . Presents in dorsal volar splint that is to be worn multimedia author and only removed for hygiene/and exercise. New since her surgery, patient c/o left elbow pain localized over her lateral epicondyle as well as tenderness along the entire L forearm extensor group. Wound appears healthy, clean, dry, and intact without drainage or excessive erythema. Surgical glue covering the wound. No signs of infection. Minimal swelling . AROM is lacking significantly, see grid for measurements. Pain Assessment Pain Pain Yes Pain Comments 2/10 Pain in the L wrist, more pain 5/10 with movement Patient educated on staying in a pain range less than 5/10 with all AROM/exercises Goniometric Comments Goniometric Comments Goniometric Comments L Hand/Wrist Radial deviation 5 degrees Ulnar deviation 9 degrees Wrist Flexion 20 degrees Wrist Extension 35 degrees Forearm supination 55 degrees Forearm pronation 70 degrees OT Objective Data Skin/Wounds/Edema Comments Wound appears healthy, clean, dry, and intact without drainage or excessive erythema . Surgical glue covering the wound. No signs of infection. Minimal swelling. L wrist circumference was 16 cm's and R (non effected side was 15.5 cm's) Sensation Sensation Assessment Summary Comments Does report some mild tingling and numbness mostly in the ulnar nerve (L hand little and ring finger), this is intermittent Additional Information Objective Additional Information X-ray AP Lateral and Radial Head views of the left elbow were obtained on 10/15/2024 from [facility], were ordered by a different physician, were reviewed by me today, and show normal appearing left elbow joint. No evidence of fracture, dislocation, significant degenerative changes, or other acute osseous abnormalities. OT Problems Problems Problems Decreased Strength,Decreased Range of Motion,Pain,Lifting, Gripping,Pinching Problems Comments Size D Tetra Logging Superintendent cut for patient today Other Problems Opening Containers,Dressing, Computer Patient Potential Good Assessment Assessment Assessment 49 year old R hand dominant female fell down the stairs on 09/22/24 fracturing her L distal ulna with surgery (ORIF ) on 10/05/[address] Dangelo. Was seen by PA for f/u Ortho apt on 10/15/24. Reports doing well. C/o left wrist stiffness and minimal left wrist pain that is well managed with ice and elevation. Not taking oral pain medications but will probably do some ibuprofen now that we are starting therapy and working on some exercise . Presents in dorsal volar splint that is to be worn multimedia author and only removed for hygiene/and exercise. New since her surgery, patient c/o left elbow pain localized over her lateral epicondyle as well as tenderness along the entire L forearm extensor group. Wound appears healthy, clean, dry, and intact without drainage or excessive erythema. Surgical glue covering the wound. No signs of infection. Minimal swelling . AROM is lacking significantly, see grid for measurements. Education and training initiated on today EVAL on the following topics: Active ROM (AROM) initiated to wrist and forearm: ROM as tolerated for patient level of comfort ( HEP printed for patient). Mild discomfort is expected; Edema management: ongoing use of elevation, ice, compression ( Tetra warehouse shipping receiving clerk); Brace/splint should be worn on the L wrist at all times except hygiene and exercise. Initiate light functional use of involved extremity with orthotic in place but no lifting/pushing/ carrying right now. Patient is anticipated to make great success, achieve all written goals in this POC. Occupational Therapy Treatment Plan - OP Potential Rehabilitation Potential Good Set Goals Goals Set with Patient Yes Goals Goals 1. Through active participation in skilled OT sessions, patient will maximize post-surgical wound healing to prevent infection, minimize functional/cosmetic sequelae of scarring. 2. Patient will be discharged from therapy once their have achieved >90% of normal AROM in the L wrist 3. Through skilled therapy treatment, patient will gain knowledge in order to promote healing of injury through the control of inflammation in order to return hand to normal , pain free function. 4. Patient will actively participate in their HEP in order to promote tendon gliding: decrease adhesions and promote strong union of sutured tendons so that patient can resume L hand to normal, pain-free function while participating in ADLs/ IADLs and work. 5. Pt will demonstrate pain- free warehouse shipping receiving clerk and pinch strength in the L hand comparable to the uninvolved R side in order to improve functional grasp, hold, reach, and lifting ability needed to complete self-care, leisure tasks, and work activities. Target Date 12 weeks Treatment Plan Treatment Plan Evaluation,Edema Control,Joint Mobilization,Manual Therapy, Ultrasound,Therapeutic Exercise,Self Care/Home Management,Education Expected Frequency 1-2x Week Expected Duration 12 Home Program Home Program Home Program Initiated Home Program Specifics Access Code: [email or web address] URL: [email or web address] Date: 10/17/2024 Prepared by: Julia Pope Exercises - Seated Scapular Retraction - 1 x daily - 7 x weekly - 3 sets - 10 reps - Seated Elbow Flexion and Extension AROM - 1 x daily - 7 x weekly - 3 sets - 10 reps - Seated Forearm Pronation and Supination AROM - 1 x daily - 7 x weekly - 3 sets - 10 reps - Wrist AROM Radial Ulnar Deviation - 1 x daily - 7 x weekly - 3 sets - 10 reps - Wrist AAROM Flexion and Extension - 1 x daily - 7 x weekly - 3 sets - 10 reps - Wrist AROM Flexion Extension - 1 x daily - 7 x weekly - 3 sets - 10 reps - Thumb Opposition - 1 x daily - 7 x weekly - 3 sets - 10 reps - Wrist Tendon Gliding - 1 x daily - 7 x weekly - 3 sets - 10 reps - Finger Spreading - 1 x daily - 7 x weekly - 3 sets - 10 reps Certification Certification Statement I Certify That: Therapy Services Provided, Therapy Plan Established, Therapy Plan Reviewed Certification Information Clinic ID # [id number] Initial Certification Date 10/17/24 Recertification Due Date 01/15/25 Provider Signature Required Yes Provider Signature Shows Agreement With POC & Medical Necessity Physician NPI Number Write NPI# Here Physician Comment/Change Comment or Changes Physician Signature & Date Requested Please Sign/Date Here
== END 2025-03-06 17:01 | disposition home or self-care (01) ==
PROVIDERS: PCP Physician Assistant Medical; Visit Provider Orthopaedic Surgery
DX: Z48.89 Encounter for other specified surgical aftercare (principal); S52.602D Unspecified fracture of lower end of left ulna, subsequent encounter for closed fracture with routine healing; S52.609D Unspecified fracture of lower end of unspecified ulna, subsequent encounter for closed fracture with routine healing; R60.0 Localized edema; Z51.89 Encounter for other specified aftercare
CPT/HCPCS: 97110; 97140; 97166; X5282

== ENCOUNTER 2025-03-28 12:00 | Outpatient (CLI) | payer BC, SELFPAY ==
[2025-03-28 23:46] LABS: Chlamydia DNA Amplified* NOT DETECTED (No Detected); GC DNA Amplified* NOT DETECTED (No Detected)
[2025-03-30 09:00] LABS: HPV Source Cervix
[2025-04-03 13:39] LABS: Pap Test Digital Imaging Done
== END 2025-03-28 12:01 | disposition home or self-care (01) ==
PROVIDERS: PCP Physician Assistant Medical; Visit Provider Physician Assistant Medical
DX: Z00.00 Encounter for general adult medical examination without abnormal findings (principal); F41.9 Anxiety disorder, unspecified; Z79.3 Long term (current) use of hormonal contraceptives; Z13.6 Encounter for screening for cardiovascular disorders; Z11.3 Encounter for screening for infections with a predominantly sexual mode of transmission; Z11.51 Encounter for screening for human papillomavirus (HPV); Z12.4 Encounter for screening for malignant neoplasm of cervix
CPT/HCPCS: 80053; 80061; 82306; 84443; 87491; 87591; 87624; 87625; 88141; 88142; 88175

== ENCOUNTER 2025-05-21 12:56 | Outpatient (CLI) | payer BC, SELFPAY ==
--- NOTE | 2025-05-21 13:00 | CRLHL7_ITS ---
For Patients: As a result of the Century Cures Act, medical imaging exams and procedure reports are released immediately into your electronic medical record. You may view this report before your referring provider. If you have questions, please contact your health care provider. EXAM: CT OF THE LEFT WRIST, WITHOUT CONTRAST CLINICAL INDICATION: Left ulnar fracture with fixation. Assess for healing. COMPARISON STUDIES: 04/25/2025 and examinations dating back to 10/02/2024. TECHNICAL: Non-contrast CT of the wrist with axial images. Sagittal oblique and coronal oblique reformatted images were created. FINDINGS: OSSEOUS STRUCTURES: Radius: No fracture. Ulna: Ulnar sided plate and screw fixation traversing the distal ulnar diaphyseal fracture. There is completed healing of the ulnar diaphyseal fracture. No hardware fracture or lucency adjacent to the hardware fixation. Carpals: Small intraosseous ganglion in the head of the scaphoid. No fractures. JOINTS: Joint Fluid: No joint effusion. No calcific loose body. Joint Space: No joint space narrowing, subchondral cystic change or hypertrophic change. Alignment: No subluxation or dislocation. SOFT TISSUES: No subcutaneous edema, fluid collection or hematoma. MUSCLES AND TENDONS: No intramuscular hematoma. No muscle atrophy. No retracted tendon tear. No subluxation of the extensor carpi ulnaris tendon. IMPRESSION: 1. Plate and screw fixation across the distal ulnar diaphyseal fracture with complete healing. The hardware is intact. 2. Small intraosseous ganglion in the head of the scaphoid. 3. Remainder unremarkable. Please note that all CT scans at this facility use dose modulation, iterative reconstruction, and/or weight-based dosing when appropriate to reduce radiation dose to as low as reasonably achievable. Dictated by Kyler Blankenship MD @ 05/22/2025 3:47:10 PM (Electronically Signed)
== END 2025-05-21 12:57 | disposition home or self-care (01) ==
LOC: CT 12:57
PROVIDERS: PCP Physician Assistant Medical; Visit Provider Orthopaedic Surgery
DX: S52.602A Unspecified fracture of lower end of left ulna, initial encounter for closed fracture (principal)
CPT/HCPCS: 73200

== ENCOUNTER 2025-05-21 13:15 | Outpatient (CLI) | payer BC, SELFPAY ==
--- NOTE | 2025-05-21 14:00 | CRLHL7_ITS ---
For Patients: As a result of the Century Cures Act, medical imaging exams and procedure reports are released immediately into your electronic medical record. You may view this report before your referring provider. If you have questions, please contact your health care provider. INDICATION: BILATERAL SCREENING MAMMOGRAM, ASYMPTOMATIC 50 Y/O FEMALE COMPARISON: 04/03/2024, 08/17/2018, 10/04/2014 TECHNIQUE: Digital mammogram in CC and MLO projections including computer-aided detection (CAD) and tomosynthesis. BREAST COMPOSITION: The breasts are heterogeneously dense, which may obscure small masses. FINDINGS: No suspicious findings. ASSESSMENT: BI-RADS 1 Negative RECOMMENDATION: Annual screening mammogram. A lay language report of this examination will be provided to the patient. Dictated by: Elijah Huff MD @ 05/22/2025 09:31:24 (Electronically Signed)
== END 2025-05-21 13:16 | disposition home or self-care (01) ==
LOC: MAMMO 13:15
PROVIDERS: PCP Physician Assistant Medical; Visit Provider Physician Assistant Medical
DX: Z12.31 Encounter for screening mammogram for malignant neoplasm of breast (principal); R92.333 Mammographic heterogeneous density, bilateral breasts; S52.602A Unspecified fracture of lower end of left ulna, initial encounter for closed fracture
CPT/HCPCS: 77063; 77067

== ENCOUNTER 2025-06-07 06:01 | Day surgery (SDC) | payer BC, SELFPAY ==
[2025-06-07] VITALS (11 sets, daily range): BP systolic 101–115; BP diastolic 66–89; PULSE 56–86; RESP 14–16; TEMP 36.6–36.7; O2SAT 97–100; BMI 20.7
[2025-06-07 06:30] LABS: Ur HCG Qualitative* Negative (Negative)
[2025-06-07] MEDS: SODIUM CHLORIDE 0.9 % (FLUSH) 10 ML SYRINGE IVF (07:00)
[2025-06-07] MEDS: LACTATED RINGERS 1000 ML 1,000 ML 100 ML IV (07:00)
--- NOTE | 2025-06-07 07:08 | P.ORPRC_ITS ---
Procedure Note Date of procedure: 06/07/25 Procedure: PREOPERATIVE DIAGNOSIS: 1. Symptomatic hardware left distal ulna POSTOPERATIVE DIAGNOSIS: 1. Symptomatic hardware left distal ulna PROCEDURE: 1. Left distal ulna hardware removal SURGEON: Wilner Dangelo MD. CRM MARKETING ANALYST: Rosa Rodriguez P.A.-C. - and assistant child care teacher was critical for this case to aid in patient positioning, tissue retraction, limb manipulation/positioning, and wound closure. ANESTHESIA: General anesthetic IMPLANTS: None TOURNIQUET: min at 225 mmHg ESTIMATED BLOOD LOSS: 10 mL COMPLICATIONS: None PROVIDER OPERATED C-ARM: C-arm fluoroscopy operated by Dr. Sánchez Dangelo for location of retained hardware and confirmation of hardware removal. Night C-arm spot images were obtained. Fluoroscopy time was 8 seconds. INDICATIONS: The patient is a pleasant 50-year-old female who underwent left distal ulna open reduction internal fixation in September 2024. This fracture healed uneventfully, however she had persistent discomfort associated with prominent hardware on the ulnar aspect of her distal forearm. CT scan and x- rays confirmed that fracture had fully healed. Patient was subsequently elected to proceed with hardware removal to reduce discomfort she had been experiencing from the prominent hardware. Prior to surgery the risks and benefits of the procedure to include but not limited to infection, neurovascular injury, refracture, persistent discomfort, healing complications were discussed and informed consent was obtained. FINDINGS: Healed distal ulna fracture. Fluoroscopic imaging confirmed removal of plate and all screws from the distal ulna. DESCRIPTION OF PROCEDURE: Following a thorough discussion of risks, benefits, and alternatives consent was obtained and the operative site was marked. The patient was brought to the operating room and placed supine on the operating table. Induction of anesthesia was undertaken. 1 g IV Ancef was administered preoperatively for prophylaxis. A tourniquet was placed on the left upper arm and left upper extremity then prepped and draped in usual sterile fashion. Surgical time-out was performed confirming patient identity, surgical site, surgical procedure. Left upper extremities elevated exsanguinated Esmarch and tourniquet inflated 225 mmHg. A surgical incision measuring approximately 4-5 cm was made using a portion of the previous surgical scar. Blunt dissection was used to dissect to subcutaneous tissues with care taken to protect crossing neurovascular structures. The ulna plate and screws were readily identified. Six screws were subsequently removed and plate was removed. The interfragmentary screw was then identified and was removed as well. Fluoroscopic imaging confirmed removal of all hardware. Small rongeur was used to smooth out small areas of prominent bone. Tourniquet was then released. Hemostasis was achieved with electrocautery and wound was irrigated with normal saline. The fascia was closed over the bone with 2-0 Vicryl [id number] interrupted sutures. Skin was then closed with 2-0 Vicryl inverted interrupted subcutaneous stitches followed by running 2-0 Stratafix and Dermabond. Sterile dressings were then applied. Patient was then awoken from anesthesia transferred the recovery room in stable condition. PLAN: 1. Tylenol or ibuprofen as needed for pain control. Tramadol as needed for more severe pain. 2. Ice and elevation for pain and swelling. 3. May advance activities as tolerated. Encouraged range of motion of the fingers and wrist. 4. Follow-up in [facility] in 10-14 days for wound check.
--- NOTE | 2025-06-07 07:08 | W.PM.H&PU ---
History & Physical Update History & Physical Update H&P Reviewed and patient assessed: No changes noted
--- NOTE | 2025-06-07 07:49 | SUR.OPER ---
PATIENT QUESTIONS ANSWERED SATISFACTORILY PREOPERATIVELY.? PATIENT BROUGHT TO OR #3 PER CART.? Patient positioned supine on OR #3 bed.? The perioperative?team supported arms bilaterally on arm boards. Final approval of positioning by surgeon.?
[2025-06-07] MEDS: BUPIVACAINE 0.25 %/EPI 1:200K 30 ml 10 ML INJECTION (08:15)
--- NOTE | 2025-06-07 08:56 | P.ANES_ITS ---
Anesthesia Charges Start Date/Time Anesthesia Start Date: 06/07/25 Anesthesia Start Time: 07:14 Stop Date/Time Anesthesia Stop Date: 06/07/25 Anesthesia Stop Time: 08:41 Coding CPT Codes CPT Codes: ANESTH LOWER ARM SURGERY - 70791 ([id number]) P1 - NORMAL HEALTHY PATIENT, QZ - HOLE FILLER SVC W/O SENIOR COMPLIANCE ANALYST BY
--- NOTE | 2025-06-07 08:56 | W.ANESCHARGE ---
Anesthesia Charges Start Date/Time Anesthesia Start Date: 06/07/25 Anesthesia Start Time: 07:14 Stop Date/Time Anesthesia Stop Date: 06/07/25 Anesthesia Stop Time: 08:41 Coding CPT Codes CPT Codes: ANESTH LOWER ARM SURGERY - 40439 ([id number]) P1 - NORMAL HEALTHY PATIENT, QZ - MACHINERY CLEANER SVC W/O RN PERINATAL BY
[2025-06-07] MEDS: ACETAMINOPHEN 500 MG TABLET PO (09:15)
== END 2025-06-07 10:01 | disposition home or self-care (01) ==
LOC: OR 06:01
PROVIDERS: Anesthesiology; PCP Physician Assistant Medical; Visit Provider Orthopaedic Surgery
PROC: (CPT 20680; principal; 2025-06-07 07:15)
DX: T84.84XA Pain due to internal orthopedic prosthetic devices, implants and grafts, initial encounter (principal)
CPT/HCPCS: 20680; 01830; 73100; 76000; 81025; A9270; J0690; J1100; J1630; J2250; J2405; J2704; J3010; J3490; J7120